=== PATIENT | male | born 1950 | race Caucasian/White ===

== ENCOUNTER → 2016-04-24 | Outpatient (CLI) | payer OTHER ==
[~2016-04-24] MED LIST: ASPI81TA28 PO; CALC500C70 PO; CYAN10005 PO; GOLI50IN SC; IBAN150T PO; LISI20TA55 PO; MULT-506 PO; MULT-513 PO; SYMPONI; ZINC1CAP PO; [UNRECOGNIZED DRUG - CODE]
[2016-04-24 10:11] LABS: HEMATOCRIT 39.8 % (42-52); MEAN CELL VOLUME 86.1 fL (80-100); MEAN CORPUSCULAR HEMOGLOBIN 30.1 pg (25-34); MEAN CORPUSCULAR HGB CONC 34.9 g/dl (32-36); MEAN PLATELET VOLUME 10.8 fL (7.4-10.4); PLATELET COUNT 235 K/uL (130-400); RED BLOOD COUNT 4.62 M/uL (4.7-6.1); WHITE BLOOD COUNT 6.16 K/uL (4.8-10.8)
[2016-04-24 11:18] LABS: ALT/SGPT 19 U/L (12-78); BLOOD UREA NITROGEN 16 mg/dl (7-18); CALCIUM 8.5 mg/dl (8.5-10.1); CARBON DIOXIDE 29 mmol/L (21-32); CHLORIDE 107 mmol/L (98-107); CHOLESTEROL 169 mg/dl (0-200); CREATININE 0.96 mg/dl (0.60-1.40); GLUCOSE 95 mg/dl (70-99); SODIUM 145 mmol/L (136-145); TRIGLYCERIDES 109 mg/dl (0-150); VERY LOW DENSITY LIPOPROT CALC 22 mg/dl
[2016-04-24 11:21] LABS: ALB/GLOB RATIO 0.9 (0.9-2); ALKALINE PHOSPHATASE 68 U/L (45-117); AST/SGOT 20 U/L (15-37); CHOLESTEROL/HDL RATIO 3.6; HDL CHOLESTEROL 47 mg/dl; LDL CHOLESTEROL CALCULATED 100 mg/dl
== END | disposition home or self-care (01) ==
LOC: C.LAB1850 09:09
PROVIDERS: ATTEND Family Medicine
DX: I10 Essential (primary) hypertension (principal); E78.5 Hyperlipidemia, unspecified; N40.0 Benign prostatic hyperplasia without lower urinary tract symptoms; I25.10 Atherosclerotic heart disease of native coronary artery without angina pectoris

== ENCOUNTER → 2016-08-15 | Outpatient (CLI) | payer OTHER | END | disposition home or self-care (01) | LOC: C.LABPBG 11:26 | PROVIDERS: ATTEND Urology | DX: Z12.5 Encounter for screening for malignant neoplasm of prostate (principal) ==

== ENCOUNTER → 2016-12-28 | Day surgery (SDC) | payer OTHER ==
[2016-12-18 07:55] VITALS: BMI 23.0
[~2016-12-28] VITALS: Ht 170.2 cm; Wt 66.8 kg
[~2016-12-28] MED LIST changes: +LIDOCAINE HCL 2% 2 ML VIAL (20MG/ML) ONE; +PROPOFOL IV EMULSION 10 MG/ML 20 ML VIAL IV ONE; +SODIUM CHLORIDE 0.9% 500ML 500 ML IV ONE; -SYMPONI
[2016-12-28 09:10] VITALS: Ht 170.2 cm; Wt 66.8 kg
--- NOTE | 2016-12-28 09:46 | Endo History and Physical ---
History & Physical Date of Service: Dec 28, 2016. Chief Complaint: SCREENING Referring Physician: DR. KNIGHT History of Present Illness 66 yo CM who presents for screening colonoscopy. Past Surgical History Hx Cardiac Surgery: Yes (HEART CATH, NO STENTS; MITRAL VALVE REPAIR 2013) Hx Internal Defibrillator: No Hx Pacemaker: No Hx Abdominal Surgery: No Hx of Implantable Prosthesis: No Hx Post-Op Nausea and Vomiting: No Hx Cancer Surgery: No Hx Thoracic Surgery: No Hx Orthopedic: Yes (RT KNEE SURGERY) Hx Urinary Tract Surgery: No Family History None Social History Smoking Status: Never Smoker Hx Substance Use: No Hx Alcohol Use: No Allergies Coded Allergies: Penicillins (Verified Allergy, Unknown, JOINTS SWELL, 12/28/16) Current Medications Reported Home Medications Medications Dose Route/Sig Max Daily Dose Days Date Category Zinc Sulfate 220 Mg Cap 220 Mg PO TID 12/28/16 Reported Vitamin B-12 (Cyanocobalamin) 1,000 Mcg Tab 1,000 Mcg PO DAILY 12/28/16 Reported Vitamin B-12 (Cyanocobalamin) 1,000 Mcg Tab 1,000 Mcg PO DAILY 12/28/16 Reported Os-Lemuel 500 Plus D (Calcium/Vitamin D) Tab 1 Tab PO DAILY 12/28/16 Reported Vitachew Vitamin C [place] (Ascorbic Acid) 125 Mg Chw 12/28/16 Reported Mvi With Minerals (Multivitamins/Minerals) Tab 1 Tab PO DAILY 12/28/16 Reported Multivitamin (Multivitamins) Tab 1 Tab PO QPM 12/18/16 Reported Boniva (Ibandronate Sodium) 150 Mg Tab 150 Mg PO MONTHLY 12/18/16 Reported Simponi (Golimumab) 50 Mg/0.5 Ml Inj 1 Dose SC MONTHLY 12/18/16 Reported Aspirin Ec (Aspirin) 81 Mg Tab 81 Mg PO QPM 01/20/14 Reported Prinzide 20-25MG (HCTZ/Lisinopril) Tab 1 Tab PO QPM 12/30/10 Reported Vital Signs Weight (Kilograms): 66.82 Height (Feet): 5 Height (Inches): 7 Date Time Temp Pulse Resp B/P (MAP) Pulse Ox O2 Delivery O2 Flow Rate FiO2 12/28/16 09:29 36.7 80 20 150/68 (95) 92 Room Air Physical Exam General Appearance: WD/WN, no apparent distress Respiratory/Chest: Auscultation: breath sounds normal Cardiovascular: Heart Auscultation: RRR Abdomen: Bowel Sounds: normal Inspection & Palpation: soft, non-distended, no tenderness, guarding & rebound Assessment and Plan Assessment: 66 yo CM who presents for screening colonoscopy. Plan: Proceed with colonoscopy.
--- NOTE | 2016-12-28 10:13 | GI REPORT ---
Procedure Date: 12/28/2016 9:49 AM Procedure: Colonoscopy Indications: Screening for colorectal malignant neoplasm Medicines: Monitored Anesthesia Care Complications: No immediate complications. Estimated Blood Loss: Estimated blood loss: none. Procedure: Pre-Anesthesia Assessment: - Prior to the procedure, a History and Physical was performed, and patient medications and allergies were reviewed. The patient's tolerance of previous anesthesia was also reviewed. The risks and benefits of the procedure and the sedation options and risks were discussed with the patient. All questions were answered, and informed consent was obtained. Prior Anticoagulants: The patient has taken aspirin, last dose was 2 days prior to procedure. ASA Grade Assessment: II - A patient with mild systemic disease. After reviewing the risks and benefits, the patient was deemed in satisfactory condition to undergo the procedure. After I obtained informed consent, the scope was passed under direct vision. Throughout the procedure, the patient's blood pressure, pulse, and oxygen saturations were monitored continuously. The scope was introduced through the anus and advanced to the terminal ileum. The colonoscopy was performed without difficulty. The patient tolerated the procedure well. The quality of the bowel preparation was good. The terminal ileum, ileocecal valve, appendiceal orifice, and rectum were photographed. Findings: Multiple small-mouthed diverticula were found in the sigmoid colon. Discontinuous areas of nonbleeding ulcerated mucosa with no stigmata of recent bleeding were present in the rectum. Biopsies were taken with a cold forceps for histology. Non-bleeding internal hemorrhoids were found during retroflexion. The hemorrhoids were small. Impression: - Diverticulosis in the sigmoid colon. - Mucosal ulceration. Biopsied. - Non-bleeding internal hemorrhoids. Recommendation: - Resume previous diet. - Continue present medications. - Repeat colonoscopy for surveillance based on pathology results. - Return to primary care physician as previously scheduled. Wale Khanna DO 12/28/2016 10:12:40 AM This report has been signed electronically. Note Initiated On: 12/28/2016 9:49 AM I attest to the content of the Intraoperative Record and orders documented therein, exceptions below
--- NOTE | 2016-12-28 10:14 | Discharge Instructions ---
Endoscopy Patient Instructions Date / Procedure(s) Performed Dec 28, 2016. Colonoscopy Allergy Information Coded Allergies: Penicillins (Verified Allergy, Unknown, JOINTS SWELL, 12/28/16) Discharge Date / Findings Dec 28, 2016. Diverticulosis Rectal ulcer Internal hemorrhoids Medication Instructions OK to resume all medications today as prescribed Reported Home Medications Medications Dose Route/Sig Max Daily Dose Days Date Category Zinc Sulfate 220 Mg Cap 220 Mg PO TID 12/28/16 Reported Vitamin B-12 (Cyanocobalamin) 1,000 Mcg Tab 1,000 Mcg PO DAILY 12/28/16 Reported Vitamin B-12 (Cyanocobalamin) 1,000 Mcg Tab 1,000 Mcg PO DAILY 12/28/16 Reported Os-Lemuel 500 Plus D (Calcium/Vitamin D) Tab 1 Tab PO DAILY 12/28/16 Reported Vitachew Vitamin C [place] (Ascorbic Acid) 125 Mg Chw 12/28/16 Reported Mvi With Minerals (Multivitamins/Minerals) Tab 1 Tab PO DAILY 12/28/16 Reported Multivitamin (Multivitamins) Tab 1 Tab PO QPM 12/18/16 Reported Boniva (Ibandronate Sodium) 150 Mg Tab 150 Mg PO MONTHLY 12/18/16 Reported Simponi (Golimumab) 50 Mg/0.5 Ml Inj 1 Dose SC MONTHLY 12/18/16 Reported Aspirin Ec (Aspirin) 81 Mg Tab 81 Mg PO QPM 01/20/14 Reported Prinzide 20-25MG (HCTZ/Lisinopril) Tab 1 Tab PO QPM 12/30/10 Reported Provider Instructions Activity Restrictions - No exercising or heavy lifting for 24 hours. - Do not drink alcohol the day of the procedure. - Do not drive a car or operate machinery until the day after the procedure. - Do not make any important decisions or sign important papers in 24 hours after the procedure. Following Day: - Return to full activity which may include returning to work/school. Diet Start your diet with liquids and light foods (jello, soup, juice, toast). Then eat your usual diet if not nauseated. Treatment For Common After Affects For mild abdominal pain, bloating, or excessive gas: - Rest - Eat lightly - Lie on right side Follow-Up Information Follow-up with DR. KNIGHT as scheduled Anesthesia Information What You Should Know You have had a procedure that required some medicine to reduce anxiety and discomfort. This treatment is called moderate sedation. After receiving the treatment, you may be sleepy, but you will be able to breathe on your own. The effects of the treatment may last for several hours. Follow these instructions along with Activity/Diet recommendations noted above: * Do NOT do anything where dizziness or clumsiness would be dangerous. * Rest quietly at home today, then you can be up and about tomorrow. * Have a responsible person stay with you the rest of today. * You may have had an I.V. today. If so, you may take the dressing off later today. Recommendations Call your doctor if: * Trouble breathing * Continuous vomiting for more than 24 hours * Temperature above 101 degrees * Severe abdominal pain or bloating * Pain not relieved by pain medicine ordered * There is increased drainage or redness from any incision * A large amount of rectal bleeding greater than 2-3 tablespoons. (If you had a polyp/s removed or have hemorrhoids, a small amount of blood - from the rectum is to be expected.) * You have any unanswered questions or concerns. IN THE EVENT OF A SERIOUS EMERGENCY, GO TO THE NEAREST EMERGENCY ROOM Your discharge instructions were prepared by provider Wale Khanna. Patient Instructions Signature Page Diogo Wade Patient (or Guardian) Signature/Date: I have read and understand the instructions given to me by my caregivers. Caregiver/RN/Doctor Signature/Date: The above-named patient and/or guardian has received patient instructions on this date. + Original Patient Signature Page (only) stays with chart. Please make copy for patient.
--- NOTE | 2016-12-28 10:23 | Anesthesiology Progress Note ---
Anesthesia Post Op Note Date & Time Dec 28, 2016 at 10:23 Vital Signs Pain Intensity: 0 Vital Signs Past 12 Hours Date Time Temp Pulse Resp B/P (MAP) Pulse Ox O2 Delivery O2 Flow Rate FiO2 12/28/16 10:15 75 18 100/63 (75) 95 Room Air 12/28/16 09:29 36.7 80 20 150/68 (95) 92 Room Air Notes Mental Status: alert / awake / arousable, participated in evaluation Pt Amnestic to Procedure: Yes Nausea / Vomiting: adequately controlled Pain: adequately controlled Airway Patency, RR, SpO2: stable & adequate BP & HR: stable & adequate Hydration State: stable & adequate Anesthetic Complications: no major complications apparent
[2016-12-28 10:45] VITALS: BP 126/75; PULSE 58; O2SAT 96
== END | disposition home or self-care (01) ==
LOC: C.GI 09:03
PROVIDERS: ATTEND Internal Medicine
DX: Z12.11 Encounter for screening for malignant neoplasm of colon (principal); K57.30 Diverticulosis of large intestine without perforation or abscess without bleeding; K62.6 Ulcer of anus and rectum; K64.8 Other hemorrhoids; Z79.82 Long term (current) use of aspirin

== ENCOUNTER → 2017-01-10 | Outpatient (CLI) | payer OTHER ==
[~2017-01-10] MED LIST changes: -LIDOCAINE HCL 2% 2 ML VIAL (20MG/ML) ONE; -PROPOFOL IV EMULSION 10 MG/ML 20 ML VIAL IV ONE; -SODIUM CHLORIDE 0.9% 500ML 500 ML IV ONE
[2017-01-10 12:44] LABS: ALT/SGPT 16 U/L (12-78); BLOOD UREA NITROGEN 12 mg/dl (7-18); CARBON DIOXIDE 31 mmol/L (21-32); CHLORIDE 104 mmol/L (98-107); CHOLESTEROL 162 mg/dl (0-200); CREATININE 0.92 mg/dl (0.60-1.40); GLUCOSE 86 mg/dl (70-99); POTASSIUM 3.5 mmol/L (3.5-5.1); SODIUM 140 mmol/L (136-145); TRIGLYCERIDES 97 mg/dl (0-150); VERY LOW DENSITY LIPOPROT CALC 19 mg/dl
[2017-01-10 12:46] LABS: ALKALINE PHOSPHATASE 73 U/L (45-117); AST/SGOT 19 U/L (15-37); CHOLESTEROL/HDL RATIO 3.7; HDL CHOLESTEROL 44 mg/dl; LDL CHOLESTEROL CALCULATED 99 mg/dl
== END | disposition home or self-care (01) ==
LOC: C.LABPBG 09:35
PROVIDERS: ATTEND Family Medicine
DX: I10 Essential (primary) hypertension (principal); E78.5 Hyperlipidemia, unspecified

== ENCOUNTER → 2017-04-01 | Day surgery (SDC) | payer OTHER ==
[2017-03-05 07:37] VITALS: Ht 170.2 cm; Wt 66.8 kg
[~2017-04-01] VITALS: Ht 170.2 cm; Wt 66.8 kg
[~2017-04-01] MED LIST changes: +LIDOCAINE HCL 2% 2 ML VIAL (20MG/ML) ONE; -MULT-513 PO; +PROPOFOL IV EMULSION 10 MG/ML 20 ML VIAL IV ONE; +SODIUM CHLORIDE 0.9% 500ML 500 ML IV ONE
[2017-04-01 11:45] VITALS: TEMP 36.4
--- NOTE | 2017-04-01 12:03 | Endo History and Physical ---
History & Physical Date of Service: Apr 01, 2017. Chief Complaint: Rectal ulcer Referring Physician: Dr. Posada History of Present Illness 66 yo CM who presents for colonoscopy secondary to rectal ulcer. Past Surgical History Hx Cardiac Surgery: Yes (HEART CATH, NO STENTS; MITRAL VALVE REPAIR 2013) Hx Internal Defibrillator: No Hx Pacemaker: No Hx Abdominal Surgery: No Hx Post-Op Nausea and Vomiting: No Hx Cancer Surgery: No Hx Thoracic Surgery: No Hx Orthopedic: Yes (RT KNEE SURGERY) Hx Urinary Tract Surgery: No Family History None Social History Smoking Status: Never Smoker Hx Substance Use: No Hx Alcohol Use: No Allergies Coded Allergies: Penicillins (Verified Allergy, Unknown, JOINTS SWELL, 04/01/17) Current Medications Reported Home Medications Medications Dose Route/Sig Max Daily Dose Days Date Category Zinc Sulfate 220 Mg Cap 220 Mg PO TID 12/28/16 Reported Vitamin B-12 (Cyanocobalamin) 1,000 Mcg Tab 1,000 Mcg PO DAILY 12/28/16 Reported Os-Lemuel 500 Plus D (Calcium/Vitamin D) Tab 1 Tab PO DAILY 12/28/16 Reported Vitachew Vitamin C [place] (Ascorbic Acid) 125 Mg Chw 12/28/16 Reported Multivitamin (Multivitamins) Tab 1 Tab PO QPM 12/18/16 Reported Boniva (Ibandronate Sodium) 150 Mg Tab 150 Mg PO MONTHLY 12/18/16 Reported Simponi (Golimumab) 50 Mg/0.5 Ml Inj 1 Dose SC MONTHLY 12/18/16 Reported Aspirin Ec (Aspirin) 81 Mg Tab 81 Mg PO QPM 01/20/14 Reported Prinzide 20-25MG (HCTZ/Lisinopril) Tab 1 Tab PO QPM 12/30/10 Reported Vital Signs Weight (Kilograms): 66.82 Height (Feet): 5 Height (Inches): 7 Date Time Temp Pulse Resp B/P (MAP) Pulse Ox O2 Delivery O2 Flow Rate FiO2 04/01/17 11:45 36.4 72 20 141/65 (90) 96 Room Air Physical Exam General Appearance: WD/WN, no apparent distress Respiratory/Chest: Auscultation: breath sounds normal Cardiovascular: Heart Auscultation: RRR Abdomen: Bowel Sounds: normal Inspection & Palpation: soft, non-distended, no tenderness, guarding & rebound Assessment and Plan Assessment: 66 yo CM who presents for flexible sigmoidoscopy secondary to rectal ulcer. Plan: Proceed with flexible sigmoidoscopy.
--- NOTE | 2017-04-01 12:46 | GI REPORT ---
Procedure Date: 04/01/2017 12:12 PM Procedure: Flexible Sigmoidoscopy Indications: Rectal ulcer Medicines: Monitored Anesthesia Care Complications: No immediate complications. Estimated Blood Loss: Estimated blood loss: none. Procedure: Pre-Anesthesia Assessment: - Prior to the procedure, a History and Physical was performed, and patient medications and allergies were reviewed. The patient's tolerance of previous anesthesia was also reviewed. The risks and benefits of the procedure and the sedation options and risks were discussed with the patient. All questions were answered, and informed consent was obtained. Prior Anticoagulants: The patient has taken aspirin, last dose was 1 day prior to procedure. ASA Grade Assessment: II - A patient with mild systemic disease. After reviewing the risks and benefits, the patient was deemed in satisfactory condition to undergo the procedure. After obtaining informed consent, the endoscope was passed under direct vision. Throughout the procedure, the patient's blood pressure, pulse, and oxygen saturations were monitored continuously. The scope was introduced through the anus and advanced to the sigmoid colon. After obtaining informed consent, the endoscope was passed under direct vision. Throughout the procedure, the patient's blood pressure, pulse, and oxygen saturations were monitored continuously.The flexible sigmoidoscopy was accomplished without difficulty. The patient tolerated the procedure well. The quality of the bowel preparation was good. Findings: The perianal and digital rectal examinations were normal. A single (solitary) fifteen mm ulcer was found in the rectum. No bleeding was present. Biopsies were taken with a cold forceps for histology. Impression: - A single (solitary) ulcer in the rectum. Biopsied. Recommendation: - Discharge patient to home (ambulatory). - High fiber diet. - Await pathology results. - Return to primary care physician as previously scheduled. Wale Khanna DO 04/01/2017 12:46:18 PM This report has been signed electronically. Note Initiated On: 04/01/2017 12:12 PM I attest to the content of the Intraoperative Record and orders documented therein, exceptions below
[2017-04-01 13:03] VITALS: BP 142/92; PULSE 56; O2SAT 98
--- NOTE | 2017-04-01 13:17 | Discharge Instructions ---
Endoscopy Patient Instructions Date / Procedure(s) Performed Apr 01, 2017. Flex Sig Allergy Information Coded Allergies: Penicillins (Verified Allergy, Unknown, JOINTS SWELL, 04/01/17) Discharge Date / Findings Apr 01, 2017. Rectal ulcer with biopsies Medication Instructions Stopped Medication(s): All meds stopped 03/31/17. OK to resume all medications today as prescribed Reported Home Medications Medications Dose Route/Sig Max Daily Dose Days Date Category Zinc Sulfate 220 Mg Cap 220 Mg PO TID 12/28/16 Reported Vitamin B-12 (Cyanocobalamin) 1,000 Mcg Tab 1,000 Mcg PO DAILY 12/28/16 Reported Os-Lemuel 500 Plus D (Calcium/Vitamin D) Tab 1 Tab PO DAILY 12/28/16 Reported Vitachew Vitamin C [place] (Ascorbic Acid) 125 Mg Chw 12/28/16 Reported Multivitamin (Multivitamins) Tab 1 Tab PO QPM 12/18/16 Reported Boniva (Ibandronate Sodium) 150 Mg Tab 150 Mg PO MONTHLY 12/18/16 Reported Simponi (Golimumab) 50 Mg/0.5 Ml Inj 1 Dose SC MONTHLY 12/18/16 Reported Aspirin Ec (Aspirin) 81 Mg Tab 81 Mg PO QPM 01/20/14 Reported Prinzide 20-25MG (HCTZ/Lisinopril) Tab 1 Tab PO QPM 12/30/10 Reported Provider Instructions Activity Restrictions - No exercising or heavy lifting for 24 hours. - Do not drink alcohol the day of the procedure. - Do not drive a car or operate machinery until the day after the procedure. - Do not make any important decisions or sign important papers in 24 hours after the procedure. Following Day: - Return to full activity which may include returning to work/school. Diet Start your diet with liquids and light foods (jello, soup, juice, toast). Then eat your usual diet if not nauseated. Treatment For Common After Affects For mild abdominal pain, bloating, or excessive gas: - Rest - Eat lightly - Lie on right side Follow-Up Information Follow-up with Dr. Posada as scheduled Anesthesia Information What You Should Know You have had a procedure that required some medicine to reduce anxiety and discomfort. This treatment is called moderate sedation. After receiving the treatment, you may be sleepy, but you will be able to breathe on your own. The effects of the treatment may last for several hours. Follow these instructions along with Activity/Diet recommendations noted above: * Do NOT do anything where dizziness or clumsiness would be dangerous. * Rest quietly at home today, then you can be up and about tomorrow. * Have a responsible person stay with you the rest of today. * You may have had an I.V. today. If so, you may take the dressing off later today. Recommendations Call your doctor if: * Trouble breathing * Continuous vomiting for more than 24 hours * Temperature above 101 degrees * Severe abdominal pain or bloating * Pain not relieved by pain medicine ordered * There is increased drainage or redness from any incision * A large amount of rectal bleeding greater than 2-3 tablespoons. (If you had a polyp/s removed or have hemorrhoids, a small amount of blood - from the rectum is to be expected.) * You have any unanswered questions or concerns. IN THE EVENT OF A SERIOUS EMERGENCY, GO TO THE NEAREST EMERGENCY ROOM Your discharge instructions were prepared by provider Wale Khanna. Patient Instructions Signature Page Diogo Wade Patient (or Guardian) Signature/Date: I have read and understand the instructions given to me by my caregivers. Caregiver/RN/Doctor Signature/Date: The above-named patient and/or guardian has received patient instructions on this date. + Original Patient Signature Page (only) stays with chart. Please make copy for patient.
--- NOTE | 2017-04-01 13:17 | Anesthesiology Progress Note ---
Anesthesia Post Op Note Date & Time Apr 01, 2017 at 13:16 Vital Signs Pain Intensity: 0 Vital Signs Past 12 Hours Date Time Temp Pulse Resp B/P (MAP) Pulse Ox O2 Delivery O2 Flow Rate FiO2 04/01/17 12:48 66 18 143/83 (103) 98 Room Air 04/01/17 12:33 58 18 104/66 (79) 97 Room Air 04/01/17 11:45 36.4 72 20 141/65 (90) 96 Room Air Notes Mental Status: alert / awake / arousable, participated in evaluation Pt Amnestic to Procedure: Yes Nausea / Vomiting: adequately controlled Pain: adequately controlled Airway Patency, RR, SpO2: stable & adequate BP & HR: stable & adequate Hydration State: stable & adequate Anesthetic Complications: no major complications apparent
== END | disposition home or self-care (01) ==
LOC: C.GI 11:08
PROVIDERS: ATTEND Internal Medicine
DX: K51.20 Ulcerative (chronic) proctitis without complications (principal); Z79.82 Long term (current) use of aspirin; Z79.899 Other long term (current) drug therapy

== ENCOUNTER → 2017-09-11 | Outpatient (CLI) | payer OTHER ==
[~2017-09-11] MED LIST changes: -LIDOCAINE HCL 2% 2 ML VIAL (20MG/ML) ONE; -PROPOFOL IV EMULSION 10 MG/ML 20 ML VIAL IV ONE; -SODIUM CHLORIDE 0.9% 500ML 500 ML IV ONE
== END | disposition home or self-care (01) ==
LOC: C.LABPBG 13:47
PROVIDERS: ATTEND Urology
DX: N40.0 Benign prostatic hyperplasia without lower urinary tract symptoms (principal)